=== PATIENT | male | born 1940 | race Caucasian/White ===

== ENCOUNTER 2024-04-15 14:34 | Outpatient (CLI) | payer MEDICARE, SELFPAY ==
--- NOTE | ~2024-04-15 | CT_ITS ---
EXAMINATION: CT hip LT wo con DATE: 04/15/2024 14:57 INDICATION: Left hip pain. TECHNIQUE: Computed tomography (CT) of the left hip was performed without intravenous contrast. Autom ated exposure control and iterative reconstruction technique were employed. The dose-length product w as 223.07 mGy-cm. COMPARISON: Pelvis and left hip radiographs 04/03/2024 FINDINGS: The prostate is mildly enlarged. There is prominent fat in left inguinal canal that may be a hernia. Alignment is normal. No fracture. There is advanced left hip osteoarthritis including bone volume loss of femoral head and acetabulum. There is a small left hip joint effusion with loose kaela s. Osseous pubis is noted. 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 IMPRESSION: 1. Advanced left hip joint osteoarthritis. 2. Small left hip joint effusion with loose bodies. Reviewed, dictated and finalized at location A. T[facility]
== END 2024-04-15 14:35 | disposition home or self-care (01) ==
PROVIDERS: PCP Emergency Medicine; Visit Provider Orthopaedic Surgery
DX: M25.552 Pain in left hip (principal); M16.12 Unilateral primary osteoarthritis, left hip; M25.452 Effusion, left hip; M24.052 Loose body in left hip
CPT/HCPCS: 73700